=== PATIENT | male | born 1955 | race Caucasian/White ===

== ENCOUNTER 2016-10-15 07:52 | Emergency (ER) | payer BC ==
--- NOTE | 2016-10-15 07:57 | EDM.PDOC ---
ED HPI GENERAL MEDICAL PROBLEM - General Chief Complaint: Upper Extremity Injury/Pain Stated Complaint: FUNKY RING FINGER, RT HAND Time Seen by Provider: 10/15/16 07:57 Source of Information: Reports: Patient, Family, RN, RN Notes Reviewed History Limitations: Reports: No Limitations - History of Present Illness INITIAL COMMENTS - FREE TEXT/NARRATIVE: C/O Rt 4th finger pain and deformity sustained this [place] himself with his Rt hand. He states he "jammed" the Rt ring finger into the rock. Denies any other injury. Rates pain . Onset: Sudden Duration: Resolved Prior to Arrival Location: Reports: Upper Extremity, Right Quality: Reports: Ache Severity: Mild Improves with: Reports: Immobilization Worsens with: Reports: Movement Context: Reports: Other (fall) Associated Symptoms: Reports: No Other Symptoms Right Hand Pain Score (Numeric/FACES): 5 - Related Data Allergies Allergy/AdvReac Type Severity Reaction Status Date / Time No Known Allergies Allergy Verified 10/15/16 08:02 Home Meds: Home Meds Dapagliflozin Propanediol [Farxiga] 5 mg PO DAILY 10/15/16 [History] atorvaSTATin [Lipitor] 10 mg PO ONETIME 10/15/16 [History] metFORMIN [Glucophage] 1,000 mg PO WITHDINNER 10/15/16 [History] metFORMIN [Glucophage] 500 mg PO ONETIME 10/15/16 [History] Past Medical History Cardiovascular History: Reports: High Cholesterol, Hypertension Endocrine/Metabolic History: Reports: Diabetes, Type II Social & Family History - Family History Family Medical History: Noncontributory - Tobacco Use Smoking Status *Q: Never Smoker - Alcohol Use Alcohol Use History: Yes Alcohol Use Frequency: Socially - Living Situation & Occupation Living situation: Reports: with Family Review of Systems - Review of Systems Review Of Systems: ROS reveals no pertinent complaints other than HPI. ED EXAM, GENERAL - Physical Exam Exam: See Below Exam Limited By: No Limitations General Appearance: Alert, WD/WN, No Apparent Distress Ears: Normal External Exam, Hearing Grossly Normal Nose: Normal Inspection Throat/Mouth: Normal Inspection Head: Atraumatic, Normocephalic Neck: Normal Inspection Respiratory/Chest: No Respiratory Distress Cardiovascular: Normal Peripheral Pulses Back Exam: Normal Inspection Extremities: Other (deformity with mild soft tissue swelling of Rt 4th finger PIP joint, skin is intact, no visible bruising) Neurological: Alert, Oriented, No Motor/Sensory Deficits Psychiatric: Normal Affect, Normal Mood Skin Exam: Warm, Dry, Intact, Normal Color, No Rash ED TRAUMA EXTREMITY PROCEDURES - Joint Reduction Site: Finger (R) (4th PIP) Sedation: Digital Block Local Anesthesia - Lidocaine (Xylocaine): 1% Plain Local Anesthetic Volume: 5cc Pre-procedure NV status: Normal Post-procedure NV status: Normal Technique: Other (manual traction reduction) Number of Attempts: 1 Post-Reduction Imaging: Completely Reduced Joint Reduction Complications: No - Splinting Right 4th Digit Splint Site: Rt 4th finger Pre-procedure NV status: Normal Post-procedure NV status: Normal Splint Material: Aluminum-Foam Splint Design: Volar Applied & Form Fitted By: Nurse Course - Vital Signs Last Recorded V/S: Last Vital Signs Temp Pulse 74 10/15/16 07:56 Resp 16 10/15/16 07:56 BP Pulse Ox 98 10/15/16 07:56 - Orders/Labs/Meds Orders: Active Orders 24 hr Category Date Time Status Fingers Fourth Digit Rt F8 [CR] Urgent Exams 10/15/16 08:14 Taken Meds: Medications Discontinued Medications Generic Name Dose Route Start Last Admin Trade Name Freq PRN Reason Stop Dose Admin Lidocaine HCl 30 ml 10/15/16 08:50 Xylocaine-Mpf 1% INJECT 10/15/16 08:51 ONETIME ONE - Radiology Interpretation Free Text/Narrative:: Xray Rt 4th finger: partial dislocation Rt 4th finger PIP joint, no fractures per Rad. report. Departure - Departure Time of Disposition: 09:20 Disposition: Home, Self-Care 01 Condition: good Clinical Impression: Dislocation, finger, interphalangeal joint Qualifiers: Encounter type: initial encounter Qualified Code(s): S63.289A - Dislocation of proximal interphalangeal joint of unspecified finger, initial encounter - Discharge Information Instructions: Finger or Thumb Dislocation Forms: ED Department Discharge Additional Instructions: Rest, ice pack, and elevate injured finger/hand to reduce pain and swelling. Wear splint for 7 to 10 days. May remove to wash or shower. Follow up in clinic with your primary doctor in 7 to 10 days for recheck. - My Orders Last 24 Hours: My Active Orders 10/15/16 08:14 Fingers Fourth Digit Rt F8 [CR] Urgent - Assessment/Plan Last 24 Hours: My Active Orders 10/15/16 08:14 Fingers Fourth Digit Rt F8 [CR] Urgent
[2016-10-15] MEDS ORDERED: Lidocaine 1% 30 ML SDV INJECT ONE (08:50)
== END 2016-10-15 09:29 | disposition home or self-care (01) ==
LOC: DL.ED 07:52
DX: S63.289A Dislocation of proximal interphalangeal joint of unspecified finger, initial encounter (principal); E11.9 Type 2 diabetes mellitus without complications; E78.00 Pure hypercholesterolemia, unspecified; I10 Essential (primary) hypertension; Z79.899 Other long term (current) drug therapy; W23.0XXA Caught, crushed, jammed, or pinched between moving objects, initial encounter
CPT/HCPCS: 26770; 73140-F8; 99284